=== PATIENT | male | born 1985 | race Caucasian/White ===

== ENCOUNTER 2017-12-23 10:42 | Emergency (ER) | payer BC ==
[~2017-12-23] VITALS: Ht 172.7 cm; Wt 93.0 kg
[2017-12-23 10:49] VITALS: BP_SYST 151
[2017-12-23] MEDS ORDERED: MECLIZINE HCL 25 MG TABLET (ANITVERT) PO ONE (11:00)
[2017-12-23 13:00] VITALS: BP_SYST 127
== END 2017-12-23 13:00 | disposition home or self-care (01) ==
LOC: SED 10:42
DX: R42 Dizziness and giddiness (principal); I10 Essential (primary) hypertension
CPT/HCPCS: 70450; 99284; J8597

== ENCOUNTER 2022-09-11 11:58 | Emergency (ER) | payer BC, OTHER ==
[~2022-09-11] VITALS: Ht 172.7 cm; Wt 90.7 kg
[2022-09-11 12:28] VITALS: BP_SYST 185
--- NOTE | 2022-09-11 13:00 | NUR ---
Pt brought by self, A&OX4, pt presents to ER with L thigh/L leg pain, skin pink and warm, cap refill <3, VSS, respirations even and unlabored, will cont to monitor.
--- NOTE | 2022-09-11 15:20 | NUR ---
Dr Stanley evaluating patient at bedside
--- NOTE | 2022-09-11 15:25 | NUR ---
Pt brought by self, A&Ox4, pt presents to ER with L thigh, L leg pain x 1 week, skin pink and warm, cap refill <3, VSS
[2022-09-11] MEDS ORDERED: IBUP-1969 PO (16:30)
--- NOTE | 2022-09-11 18:28 | NUR ---
Dr Stanley evaluating patient at bedside
--- NOTE | 2022-09-11 18:32 | NUR ---
Patient given written and verbal discharge instructions and verbalizes understanding. ER MD discussed with patient the results and treatment provided. Patient in stable condition. ID arm band removed. Rx Ibuprofen given. Patient educated on pain management and to follow up with PMD. Pain Scale 3/10. Opportunity for questions provided and answered. Medication side effect fact sheet provided.
[2022-09-11 18:33] VITALS: BP_SYST 185
== END 2022-09-11 18:33 | disposition home or self-care (01) ==
LOC: SED 11:58
DX: M54.32 Sciatica, left side (principal); M79.662 Pain in left lower leg; I10 Essential (primary) hypertension; Z79.899 Other long term (current) drug therapy
CPT/HCPCS: 73502; 99283